=== PATIENT | male | born 1960 | race Caucasian/White ===

== ENCOUNTER 2017-06-04 10:00 | Inpatient (IN) | payer OTHER ==
[~2017-06-04] VITALS: Ht 172.7 cm; Wt 63.5 kg
--- NOTE | ~2017-06-04 | PA ---
Unit #: [id number] #: [id number] Patient: ASHLY SOSA [id number] [facility] [address] [place] [address] [id number] I MR#: [id number] NAME: ASHLY SOSA ROOM: P201 Age: 56 Sex: M Admission Date: 06/04/2017 : 1960 Date of Assessment: Attending Physician: Tex Buck M.D. Admitting Physician: Tex Buck M.D. PSYCHIATRIC ASSESSMENT DATE OF SERVICE 06/05/2017. IDENTIFYING DATA Mr. Sosa is a 56-year-old single white male, who is a resident of [place], [place], and was transferred to us from [facility] on a voluntary basis, where he presented to the hospital with blood alcohol level of 159. CHIEF COMPLAINT "I'm experiencing withdrawal symptoms." HISTORY OF PRESENT ILLNESS Mr. Sosa is a 56-year-old white male, who came to the hospital shaking and someone called the ambulance. The patient reports they feel like he was having significant withdrawals and he last drank 6 in the morning and upon initial presentation to the hospital emergency room, his blood alcohol level was 351 which later dropped to 159 before assessment could even be completed. He reports that he drinks a fifth of vodka a day and that he drinks like this for the last 25 years and was seen to be unkempt, disheveled, with sweaty clothing and was having some significant withdrawal symptoms, anxiety, depression, irritability, restlessness, feelings of hopelessness and helplessness. He denies any suicidal ideations, intent, or plan. He was medically cleared in the emergency room and then transferred to us. SUBSTANCE ABUSE HISTORY The patient reports alcohol to be his drug of choice stating that he has been drinking since he was 14 years old and currently reports drinking a fifth of vodka a day and denies any other drug abuse. PAST PSYCHIATRIC HISTORY The patient has not had any prior inpatient chemical dependency treatment. Review of the medical records indicate currently he is not active in any treatment program, is not seeing a psychiatrist, and is not taking any psychotropic medications. PAST MEDICAL HISTORY No acute or chronic medical illnesses. ALLERGIES No known medication allergies. Unit #: [id number] #: [id number] Patient: ASHLY SOSA CURRENT MEDICATIONS None. PERSONAL AND SOCIAL HISTORY A 56-year-old white male, who reports that he is single, unemployed, and essentially homeless and has poor social support system. MENTAL STATUS EXAMINATION Middle-aged white male who was casually dressed with fair personal hygiene, appears to be in no acute distress or discomfort. He was awake and alert on interaction with intact orientation. His mood was anxious and depressed with a congruent affect. His speech was slow and restricted in content. His thought processes were disorganized with some looseness of associations and flight of ideas. His insight and judgment remain significantly impaired. DIAGNOSTIC IMPRESSION Psychiatric: Alcohol dependence, moderate and acute withdrawals; alcohol-induced mood disorder. Medical: None. Stressors: Moderate psychosocial stressors. TREATMENT PLAN 1. The patient has presented with history of substance abuse and dependence and has been decompensating and will need inpatient hospitalization for detoxification, safety, and stabilization. We will start him on detox protocol. We will closely monitor for any worsening withdrawal symptoms. 2. Supportive therapy was provided to the patient. 3. Safe, structured, and nourishing environment will be provided. ESTIMATED LENGTH OF STAY 5 to 7 days. ABILITY TO HELP SELF Limited. WILLINGNESS TO HELP SELF The patient appears to be willing to help self. STRENGTHS 1. Communicative. 2. Cooperative. PROBLEMS 1. Chronic dysphoric symptoms. 2. Chronic chemical dependency. 3. Poor social support system. DISCHARGE CRITERIA This will be contingent upon the patient's ability to go through detox without having any significant withdrawal symptoms as well as his ability to stay safe to himself, particularly after discharge from the hospital. Dictated by... Tex Buck M.D. Unit #: [id number] #: [id number] Patient: ASHLY SOSA LEANNE/modl TD: 06/06/2017 00:53 JOB #: [id number] PSYCHIATRIC ASSESSMENT Page 1 of 1 X Tex Buck MD X PSYCHIATRIC ASSESSMENT
--- NOTE | ~2017-06-04 | PN ---
Unit #: [id number] #: [id number] Patient: ASHLY MCCLAIN [id number] [facility] [address] [place] [address] [id number] MR#: [id number] NAME: ASHLY MCCLAIN ROOM: P201 Age: 56 Sex: M Admission Date: 06/04/2017 : 1960 Attending Physician: Tex Buck M.D. Admitting Physician: Patience Villaseñor PROGRESS NOTES DATE OF SERVICE: 06/07/2017 SUBJECTIVE Mr. Mcclain is a 56-year-old white male with alcohol dependence and mood disorder, who was seen today and chart was reviewed and case was discussed with the staff. He has been anxious, withdrawn, and appears to be shaky, tremulous, and unsteady in his feet with poor personal hygiene. Meanwhile, he has been taking medications and appears to be coming out of the detox without any complications. MENTAL STATUS EXAMINATION Middle-aged white male who was casually dressed with marginal personal hygiene, appears to be in no acute distress or discomfort. He was awake and alert with impaired attention and concentration. His mood was anxious with a congruent affect. He denies any suicidal or homicidal ideations. His insight and judgment remain slightly impaired. TREATMENT PLAN 1. We will continue on his current treatment protocol. We will monitor his response to medications and make further adjustments as needed. 2. We will continue to follow up. Dictated by... Patience Villaseñor/katia TD: 06/08/2017 03:24 JOB #: [id number] AN PROGRESS NOTES Page 1 of 1 X Tex Buck MD PROGRESS NOTE
--- NOTE | ~2017-06-04 | DS ---
Unit #: [id number] #: [id number] Patient: ASHLY SOSA [id number] [place] [address] [id number] I MR#: [id number] NAME: ASHLY SOSA ROOM: [facility] [place] Age: 56 Sex: M Admission Date: 06/04/2017 : 1960 Discharge Date: 06/09/2017 Attending Physician: Tex Buck M.D. DISCHARGE SUMMARY IDENTIFICATION DATA Mr. Sosa is a 56-year-old white male who is a resident of [place], [place], and was transferred to us from [facility] on voluntary basis after he presented to the hospital with a blood alcohol level of 159. DISCHARGE DIAGNOSES PSYCHIATRIC: Alcohol dependence, moderate, in acute withdrawals. Alcohol-induced mood disorder. MEDICAL: None. STRESSORS: Mild psychosocial stressors. HISTORY OF PRESENT ILLNESS Same as in initial psychiatric evaluation. PAST PSYCHIATRIC HISTORY Same as in initial psychiatric evaluation. PAST MEDICAL HISTORY Same as in initial psychiatric evaluation. HOSPITAL COURSE The patient was [facility] and was oriented to the hospital environment. Routine p.r.n. medications were initiated, and he was started on the alcohol detox protocol. However, the patient was seen to be very irritable, impulsive, and refusing to cooperate with treatment recommendations and was able to come out of the detox without any complications. As such it was decided that he will be discharged home. We will continue treatment on outpatient basis. DISCHARGE MEDICATIONS None. CONDITION AT DISCHARGE Stable. PROGNOSIS Fair. Dictated by... Tex Buck M.D. Unit #: [id number] #: [id number] Patient: ASHLY SOSA LEANNE/karlg TD: 06/09/2017 07:35 JOB #: [id number] DISCHARGE SUMMARY Page 1 of 1 X Tex Buck MD X DISCHARGE SUMMARY
--- NOTE | ~2017-06-04 | HP ---
Unit #: [id number] #: [id number] Patient: ASHLY SOSA [id number] [place] [address] [id number] I MR#: [id number] NAME: ASHLY SOSA ROOM: P201 Age: 56 Sex: M Admission Date: 06/04/2017 : 1960 Attending Physician: Tex Buck M.D. Admitting Physician: Tex Buck M.D. HISTORY AND PHYSICAL HISTORY OF PRESENT ILLNESS Patient is a 56-year-old male admitted to [address] [place] [address] on 06/04/2017 to detox from alcohol. PAST MEDICAL HISTORY 1. Frostbite on his left big toe. 2. Alcohol abuse. PAST SURGICAL HISTORY Patient denies. SOCIAL HISTORY He is unemployed and homeless. He smokes 1 1/2 pack of cigarettes daily, drinks a fifth of vodka per day. FAMILY MEDICAL HISTORY Noncontributory. ALLERGIES No known drug allergies. CURRENT MEDICATIONS Patient is not on any home medications. REVIEW OF SYSTEMS CONSTITUTIONAL: No fever or chills. HEENT: Denies any sore throat, ear pain or runny nose. CARDIOVASCULAR: Denies chest pain, irregular heart rhythm or palpitations. CHEST: Denies shortness of breath or cough. No hemoptysis. GASTROINTESTINAL: Denies nausea, vomiting, diarrhea or chronic constipation. ENDOCRINE: Denies history of increased thirst or urination. No recent significant weight loss or gain. GENITOURINARY: Denies dysuria, frequency, or hematuria. SKIN: Denies any rashes. HEMATOLOGIC: Denies history of increased bleeding or bruising. MUSCULOSKELETAL: Denies any hot, swollen joints. No generalized muscle pain. NEUROLOGIC: Denies problems with vision or speech. No frequent, severe headaches. No numbness, tingling or weakness in any extremities. Denies loss of bladder or bowel control. PHYSICAL EXAM Unit #: [id number] #: [id number] Patient: ASHLY SOSA GENERAL: He is awake, alert and oriented in no acute distress. VITAL SIGNS: Temperature 97.9, heart rate 123, respiration 20, blood pressure 138/98. HEIGHT: 5 foot 8. WEIGHT: 140 pounds. SKIN: Warm and dry without rash or lesion. HEENT: Normocephalic. TMs not viewed. Oral and nasal passages clear. Conjunctivae clear. PERRLA. EOMs intact. NECK: Supple without lymphadenopathy or thyromegaly. HEART: Regular rate and rhythm without murmur. LUNGS: Clear. ABDOMEN: Soft, nontender. : Not done. EXTREMITIES: He has frostbite on his left big toe. NEUROLOGICAL: Grossly within normal limits. Cranial Nerves: II: Visual sotelo are intact. III, IV AND : Extraocular movements are intact. Pupils are equal, round and reactive to light. V: Facial sensation is grossly normal. VII: Facial movements and expression are normal. VIII: Auditory acuity grossly intact. IX, X: Uvula is midline. Phonation is normal. XI: Patient shrugs shoulders and turns head normally. XII: Tongue protrudes in the midline. Sensory and Motor Function: Sensory and motor sensation is grossly normal. Motor: moves all extremities well. IMPRESSION 1. Psychiatric admission. 2. Alcohol abuse. 3. History of frostbite. RECOMMENDATIONS Psychiatric per psychiatrist. MEDICAL: No contraindication to participate in facility activities. MEDICAL PROGNOSIS Good. MEDICAL CONDITION Stable. Dictated by... Bruno Krishnamurthy/bolivar TD: 06/07/2017 01:22 JOB #: [id number] Unit #: [id number] #: [id number] Patient: ASHLY SOSA HISTORY AND PHYSICAL Page 1 of 1 X MAYA STANFORD APRN HISTORY AND PHYSICAL
--- NOTE | ~2017-06-04 | PN ---
Unit #: [id number] #: [id number] Patient: ASHLY MCCLAIN [id number] [facility] [address] [place] [address] [id number] I MR#: [id number] NAME: ASHLY MCCLAIN ROOM: P201 Age: 56 Sex: M Admission Date: 06/04/2017 : 1960 Attending Physician: Tex Buck M.D. Admitting Physician: Patience Villaseñor PROGRESS NOTES DATE 06/08/2017 DISCUSSION Mr. Mcclain is a 56-year-old white male with alcohol dependence who was seen today and chart was reviewed and case was discussed with the staff. He has been anxious, withdrawn and rather seclusive to himself. Meanwhile, he has been cooperative with treatment recommendations and has been taking the medications and tolerating them fairly well with no reported side effects. MENTAL STATUS EXAMINATION Middle-aged white male who was casually dressed with fair personal hygiene and appears to be in no acute distress or discomfort. He was awake and alert with intact orientation. His mood was anxious with congruent affect. He denies any suicidal or homicidal ideation. His insight and judgement remains slightly impaired. TREATMENT PLAN 1. Will continue him on his current medications and treatment protocol. Will monitor his response to medications and make further adjustments as needed. 2. Will continue to follow up. Dictated by... Patience Villaseñor/katia TD: 06/08/2017 16:50 JOB #: [id number] Unit #: [id number] #: [id number] Patient: ASHLY MCCLAIN PROGRESS NOTES Page 1 of 1 X Tex Buck MD X PROGRESS NOTE
--- NOTE | ~2017-06-04 | PN ---
Unit #: [id number] #: [id number] Patient: ASHLY SOSA [id number] [facility] [address] [place] [address] [id number] MR#: [id number] NAME: ASHLY SOSA ROOM: P201 Age: 56 Sex: M Admission Date: 06/04/2017 : 1960 Attending Physician: Tex Buck M.D. Admitting Physician: Patience Villaseñor NOTES DATE OF SERVICE: 06/06/2017 SUBJECTIVE Mr. Sosa is a 56-year-old white male with alcohol dependence and mood disorder, who was seen today and chart was reviewed, and case was discussed with the staff. He has been anxious, withdrawn, unkempt, disheveled, and rather seclusive to himself. Meanwhile, he has been cooperative with treatment recommendation. He has been taking medications and tolerating them fairly well with no reported side effects. MENTAL STATUS EXAMINATION Middle-aged white male, who was casually dressed with marginal personal hygiene, appears to be in no acute distress or discomfort. He was awake and alert with impaired attention and concentration. His mood was anxious with a congruent affect. His speech was slow and restricted in content. He denies any suicidal ideation or homicidal ideations. His insight and judgment remain slightly impaired. TREATMENT PLAN 1. We will continue on his current medications and treatment protocol. We will monitor his response and make further adjustments as needed. 2. We will continue to follow up. Dictated by... Patience Villaseñor/katia TD: 06/08/2017 03:10 JOB #: [id number] AN [facility]HE[facility] NOTES Page 1 of 1 X Tex Buck MD PROGRESS NOTE
== END 2017-06-09 17:11 | disposition home or self-care (01) | DRG 897 ==
LOC: P2S 17:28
PROC: HZ2ZZZZ Detoxification Services for Substance Abuse Treatment (ICD-10-PCS; principal; 2017-06-04)
DX: F10.239 Alcohol dependence with withdrawal, unspecified (principal); F10.24 Alcohol dependence with alcohol-induced mood disorder; Z59.0 Homelessness; F17.210 Nicotine dependence, cigarettes, uncomplicated
CPT/HCPCS: 86592